=== PATIENT | male | born 1970 | race Caucasian/White ===

== ENCOUNTER → 2023-10-31 17:29 | Outpatient (REF) | payer BC, SELFPAY | LOC: RAD 17:29 | PROVIDERS: ATTENDING PHYSICIAN Family Medicine; FAMILY PHYSICIAN Family Medicine | DX: R07.81 Pleurodynia (principal) | CPT/HCPCS: 71101 ==

== ENCOUNTER → 2024-04-15 15:50 | Outpatient (REF) | payer BC, SELFPAY | LOC: RAD 15:50 | PROVIDERS: ATTENDING PHYSICIAN Physician Assistant; FAMILY PHYSICIAN Family Medicine | DX: M54.2 Cervicalgia (principal); T14.90XA Injury, unspecified, initial encounter | CPT/HCPCS: 72052 ==

== ENCOUNTER → 2024-09-03 14:55 | Outpatient (REF) | payer BC, SELFPAY | LOC: HWRAD 14:55 | PROVIDERS: ATTENDING PHYSICIAN Nurse Practitioner Family; FAMILY PHYSICIAN Family Medicine | DX: R22.1 Localized swelling, mass and lump, neck (principal) | CPT/HCPCS: 76536 ==

== ENCOUNTER → 2024-09-24 15:33 | Outpatient (REF) | payer BC, SELFPAY | LOC: RAD 15:33 | PROVIDERS: ATTENDING PHYSICIAN Otolaryngology; FAMILY PHYSICIAN Family Medicine | DX: D38.0 Neoplasm of uncertain behavior of larynx (principal) | CPT/HCPCS: 70491; Q9967 ==

== ENCOUNTER 2024-10-10 06:43 | Day surgery (SDC) | payer BC, SELFPAY ==
[2024-10-10] VITALS (7 sets, daily range): BP systolic 141–161; BP diastolic 99–105
[2024-10-10] MEDS: NORMOSOL-R/PLASMALYTE-A 1000 IV (11:50)
[2024-10-10 12:43] LABS: Hematocrit 43.9 % (39.0-52.0); Hemoglobin 14.7 g/dL (13.0-18.0); Mean Corp Hgb Conc. 33.5 g/dL (33.0-37.0); Mean Corpuscular Volume 89.6 fL (80.0-94.0); Mean Platelet Volume 8.8 fL (7.4-10.4); Platelet Count 299 10^3/uL (130-400); White Blood Cell Count 9.2 10^3/uL (4.8-10.8)
== END 2024-10-10 15:23 | disposition home or self-care (01) ==
LOC: SDS 06:43
PROVIDERS: ATTENDING PHYSICIAN Otolaryngology; FAMILY PHYSICIAN Family Medicine
DX: R13.10 Dysphagia, unspecified (principal); D38.0 Neoplasm of uncertain behavior of larynx; J37.0 Chronic laryngitis
CPT/HCPCS: 31535; 88305; 85027; 88341; 88342; 88365; 93005

== ENCOUNTER → 2025-08-01 17:20 | Outpatient (REF) | payer BC, SELFPAY | LOC: RAD 17:20 | PROVIDERS: ATTENDING PHYSICIAN Otolaryngology; FAMILY PHYSICIAN Family Medicine | DX: E04.1 Nontoxic single thyroid nodule (principal) | CPT/HCPCS: 76536 ==

== ENCOUNTER → 2025-08-14 10:30 | Outpatient (REF) | payer BC, SELFPAY | LOC: RAD 10:30 | PROVIDERS: ATTENDING PHYSICIAN Orthopaedic Surgery; FAMILY PHYSICIAN Family Medicine | DX: M79.661 Pain in right lower leg (principal) | CPT/HCPCS: 93971 ==

== ENCOUNTER 2025-09-15 06:19 | Day surgery (SDC) | payer BC, SELFPAY | END 2025-09-15 11:50 | disposition home or self-care (01) | LOC: GI 06:19 | PROVIDERS: ATTENDING PHYSICIAN Internal Medicine Gastroenterology; FAMILY PHYSICIAN Family Medicine | DX: Z12.11 Encounter for screening for malignant neoplasm of colon (principal); Q43.8 Other specified congenital malformations of intestine; K64.8 Other hemorrhoids; K20.0 Eosinophilic esophagitis; K29.70 Gastritis, unspecified, without bleeding; K22.89 Other specified disease of esophagus; K21.9 Gastro-esophageal reflux disease without esophagitis; K44.9 Diaphragmatic hernia without obstruction or gangrene; Z83.719 Family history of colon polyps, unspecified | CPT/HCPCS: 43239; G0105; 88305; 88342 ==